=== PATIENT | female | born 1995 | race Two or more races ===

== ENCOUNTER 2020-07-07 16:17 | Emergency (ER) | payer MEDICAID ==
[~2020-07-07] VITALS: Ht 162.6 cm; Wt 61.0 kg
[2020-07-07 17:40] LABS: CLARITY URINE CLEAR (CLEAR); COLOR URINE YELLOW (YELLOW); KETONES URINE NEGATIVE (NEGATIVE); LEUKOCYTE ESTERASE URINE 1+ (NEGATIVE); NITRITE URINE NEGATIVE (NEGATIVE); OCCULT BLOOD URINE NEGATIVE (NEGATIVE); PROTEIN URINE NEGATIVE (NEGATIVE); SPECIFIC GRAVITY URINE 1.014 (1.005-1.030); UROBILINOGEN URINE 0.2 E.U./dL (0.2-1.0)
[2020-07-07] MEDS ORDERED: LIDOCAINE HCL 1% 20ML VIAL (Pyxis) INJ INFIL ONE (17:45)
[2020-07-07] MEDS ORDERED: CEFTRIAXONE SODIUM 250 MG/VIAL IM ONE (17:45)
[2020-07-07] MEDS ORDERED: AZITHROMYCIN 500 MG TABLET PO ONE (17:45)
[2020-07-07 18:42] VITALS: BP 108/61
== END 2020-07-07 18:50 | disposition home or self-care (01) ==
LOC: ER 16:17
DX: Z20.2 Contact with and (suspected) exposure to infections with a predominantly sexual mode of transmission (principal); R10.13 Epigastric pain; Z90.49 Acquired absence of other specified parts of digestive tract; Z90.89 Acquired absence of other organs; Z98.890 Other specified postprocedural states
CPT/HCPCS: 81003; 81025; 87491; 87591; 96372; 99283; J0696; J3490